=== PATIENT | female | born 1945 | race Caucasian/White ===

== ENCOUNTER 2016-07-19 10:40 | Emergency (ER) | payer MEDICARE ==
[2016-07-19] MEDS ORDERED: SODIUM CHLORIDE 0.9% 1,000 ML IV STA (12:36)
[2016-07-19] MEDS ORDERED: MAGNESIUM CITRATE 296 ML BOTTLE PO ONE (12:36)
[2016-07-19 13:15] LABS: Basophils % (A) 1 %; CH 29.5; CHCM 34.8; Eosinophils # (A) 0.2 k/uL (0-0.7); Eosinophils % (A) 3 %; HCT 43.5 % (34.0-46.0); HDW 2.61; HGB 15.2 gm/dL (11.4-16.0); Luc % (Auto) 3; Lymphocytes # (A) 2.1 k/uL (1.0-4.8); Lymphocytes % (A) 35 %; MCH 29.7 pg (25.0-35.0); MCHC 34.9 g/dL (31.0-37.0); MCV 85.1 fL (80.0-100.0); Mean Platelet Volume 7.7; Monocytes # (A) 0.5 k/uL (0-1.0); Monocytes % (A) 8 %; Neutrophils % (A) 50 %; RBC 5.12 m/uL (3.80-5.40); RDW 12.9 % (11.5-15.5); WBC (Perox) 5.68
--- NOTE | 2016-07-19 13:18 | ED ---
General Adult HPI - General Chief complaint: Abdominal Pain Stated complaint: constipated Time Seen by Provider: 07/19/16 12:19 Source: patient, RN notes reviewed Mode of arrival: ambulatory Limitations: no limitations - History of Present Illness Initial comments: Patient 71-year-old female who presents emergency room today with chief complaint of symptoms of nausea and possible constipation. Patient states that she's not had a normal bowel movement last 3 weeks. She states she's been using some stool softeners and [id number] laxatives with some success. She states she's had loose stools but still feels like there is more that the stool is going around. Patient admits that she's been feeling more nauseated over the last 2-3 days. She denies any abdominal pain. Denies any other complaints or symptoms. Patient denies any recent fever, chills, shortness of breath, chest pain, back pain, vomiting, numbness or tingling, dysuria or hematuria, constipation or diarrhea, headaches or visual changes, or any other complaints. - Related Data Previous Rx's Medication Instructions Recorded Ondansetron Odt [Zofran ODT] 4 mg PO Q8HR PRN #20 tab 07/19/16 Allergies Allergy/AdvReac Type Severity Reaction Status Date / Time No Known Allergies Allergy Verified 07/19/16 12:54 Review of Systems ROS Statement: Those systems with pertinent positive or pertinent negative responses have been documented in the HPI. ROS Other: All systems not noted in ROS Statement are negative. 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 History of Any Multi-Drug Resistant Organisms: None Reported Past Surgical History: Cholecystectomy Additional Past Surgical History / Comment(s): eye surgery, tubal ligation. Past Psychological History: No Psychological Hx Reported Smoking Status: Never smoker Past Alcohol Use History: None Reported Past Drug Use History: None Reported General Exam - General Exam Comments Initial Comments: General: The patient is awake and alert, in no distress, and does not appear acutely ill. Eye: Pupils are equal, round and reactive to light, extra-ocular movements are intact. No nystagmus. There is normal conjunctiva bilaterally. No signs of icterus. Ears, nose, mouth and throat: There are moist mucous membranes and no oral lesions. Neck: The neck is supple, there is no tenderness or JVD. Cardiovascular: There is a regular rate and rhythm. No murmur, rub or gallop is appreciated. Respiratory: Lungs are clear to auscultation, respirations are non-labored, breath sounds are equal. No wheezes, stridor, rales, or rhonchi. Gastrointestinal: Soft, non-distended, non-tender abdomen without masses or organomegaly noted. There is no rebound or guarding present. No CVA tenderness. Bowel sounds are unremarkable. Musculoskeletal: Normal ROM, no tenderness. Strength 5/5. Sensation intact. Pulses equal bilaterally 2+. Neurological: A&O x 3. CN II-XII intact, There are no obvious motor or sensory deficits. Coordination appears grossly intact. Speech is normal. Skin: Skin is warm and dry and no rashes or lesions are noted. Psychiatric: Cooperative, appropriate mood & affect, normal judgment. Limitations: no limitations Course Vital Signs 07/19/16 11:11 Temperature 97.2 F L Pulse Rate 70 Respiratory 20 Rate Blood Pressure 138/89 O2 Sat by Pulse 100 Oximetry Medical Decision Making - Medical Decision Making Patient reexamined at this time shows no signs of distress. Patient's labs been reviewed are unremarkable. X-ray nonspecific no sign of obstruction. Results were discussed with the patient. Abdomen soft nontender. Options were discussed with patient about in the emergency room. She declined. States will continue that she's been doing at home. Patient advised return if any symptoms increase or worsen. - Lab Data Result diagrams: 07/19/16 12:57 07/19/16 12:57 Lab Results 07/19/16 07/19/16 07/19/16 Range/Units 12:57 12:57 12:57 WBC 6.0 (3.8-10.6) k/uL RBC 5.12 (3.80-5.40) m/uL Hgb 15.2 (11.4-16.0) gm/dL Hct 43.5 (34.0-46.0) % MCV 85.1 (80.0-100.0) fL MCH 29.7 (25.0-35.0) pg MCHC 34.9 (31.0-37.0) g/dL RDW 12.9 (11.5-15.5) % Plt Count 264 (150-450) k/uL Neutrophils % 50 % Lymphocytes % 35 % Monocytes % 8 % Eosinophils % 3 % Basophils % 1 % Neutrophils # 3.0 (1.3-7.7) k/uL Lymphocytes # 2.1 (1.0-4.8) k/uL Monocytes # 0.5 (0-1.0) k/uL Eosinophils # 0.2 (0-0.7) k/uL Basophils # 0.0 (0-0.2) k/uL Sodium 144 (137-145) mmol/L Potassium 4.5 (3.5-5.1) mmol/L Chloride 106 (98-107) mmol/L Carbon Dioxide 24 (22-30) mmol/L Anion Gap 14 mmol/L BUN 15 (7-17) mg/dL Creatinine 0.71 (0.52-1.04) mg/dL Est GFR (MDRD) Af Amer >60 (>60 ml/min/1.73 sqM) Est GFR (MDRD) Non-Af >60 (>60 ml/min/1.73 sqM) Glucose 91 (74-99) mg/dL Calcium 9.8 (8.4-10.2) mg/dL Total Bilirubin 1.1 (0.2-1.3) mg/dL AST 40 H (14-36) U/L ALT 35 (9-52) U/L Alkaline Phosphatase 88 (38-126) U/L Total Protein 8.2 (6.3-8.2) g/dL Albumin 4.3 (3.5-5.0) g/dL Urine Color Yellow Urine Appearance Clear (Clear) Urine pH 8.0 (5.0-8.0) Ur Specific [place] 1.014 (1.001-1.035) Urine Protein Negative (Negative) Urine Glucose (UA) Negative (Negative) Urine Ketones Negative (Negative) Urine Blood Negative (Negative) Urine Nitrite Negative (Negative) Urine Bilirubin Negative (Negative) Urine Urobilinogen <2.0 (<2.0) mg/dL Ur Leukocyte Esterase Negative (Negative) Disposition Clinical Impression: Nausea Disposition: HOME SELF-CARE Condition: Good Instructions: Acute Nausea and Vomiting (ED) Additional Instructions: Please use medication as discussed. Please follow-up with family doctor in the next 2 days of symptoms have not improved. Please return to emergency room if the symptoms increase or worsen or for any other concerns. Prescriptions: Ondansetron Odt [Zofran ODT] 4 mg PO Q8HR PRN #20 tab PRN Reason: Nausea Time of Disposition: 14:11
[2016-07-19 13:21] LABS: Appearance,Urine Clear (Clear); Bilirubin,Urine Negative (Negative); Glucose,Urine (UA) Negative (Negative); Ketones,Urine Negative (Negative); Leukocyte Esterase,Urine Negative (Negative); Nitrite,Urine Negative (Negative); Protein,Urine Negative (Negative); Specific Gravity,Urine 1.014 (1.001-1.035); UA Billing (MACRO vs. MICRO) CHEM; Urobilinogen,Urine <2.0 mg/dL (<2.0)
[2016-07-19 13:25] LABS: ALT 35 U/L (9-52); AST 40 U/L (14-36); Alkaline Phosphatase 88 U/L (38-126); Anion Gap 14 mmol/L; Blood Urea Nitrogen 15 mg/dL (7-17); Calcium 9.8 mg/dL (8.4-10.2); Carbon Dioxide 24 mmol/L (22-30); Chloride 106 mmol/L (98-107); Glucose 91 mg/dL (74-99); Non-African American GFR(MDRD) >60 (>60 ml/min/1.73 sqM); Potassium 4.5 mmol/L (3.5-5.1); Sodium 144 mmol/L (137-145); Total Bilirubin 1.1 mg/dL (0.2-1.3); Total Protein 8.2 g/dL (6.3-8.2)
--- NOTE | 2016-07-19 13:56 | XR ---
EXAMINATION TYPE: XR KUB DATE OF EXAM: 07/19/2016 1:53 PM COMPARISON: NONE HISTORY: Constipation TECHNIQUE: One view abdominal series FINDINGS: The osseous structures are intact. The bowel gas pattern is nonspecific. Occasional air-fluid level is nonspecific. Lung bases are clear. Surgical clips right upper quadrant. Arthropathy of the hips n oted. Diffuse osteopenia and mild hypertrophic change of the spine. IMPRESSION: 1. Nonspecific abdomen.
[2016-07-19 14:20] VITALS: BP 151/76; PULSE 71; RESP 16; TEMP 97.8
== END 2016-07-19 14:20 | disposition home or self-care (01) ==
LOC: EC 10:40
DX: R11.0 Nausea (principal); R10.9 Unspecified abdominal pain; Z90.49 Acquired absence of other specified parts of digestive tract
CPT/HCPCS: 36415; 74000; 80053; 81003; 85025; 96360; 99284

== ENCOUNTER 2016-07-28 06:53 | Day surgery (SDC) | payer MEDICARE ==
[2016-07-23 15:02] VITALS: BMI 24.0
[~2016-07-28 06:53] MED LIST: LACTATED RINGERS 1,000 ML IV SCH
[2016-07-28 07:11] VITALS: TEMP 97.8
[2016-07-28] MEDS ORDERED: PROPOFOL 10 MG/ML 20 ML VIAL IV ONE (07:44)
[2016-07-28] MEDS ORDERED: LIDOCAINE 1% INJ 10MG/ML (20 ML MDV) ONE (07:44)
[2016-07-28 08:04] VITALS: RESP 16
--- NOTE | 2016-07-28 08:04 | P.PCN ---
Date of Procedure: 07/28/16 Procedure(s) Performed: BRIEF HISTORY: Patient is a 71-year-old pleasant white female, scheduled for an elective colonoscopy as a part of screening for colorectal neoplasia. Her last colonoscopy was 20 years ago. PROCEDURE PERFORMED: Colonoscopy. PREOPERATIVE DIAGNOSIS: Screening for colon cancer. IV sedation per Anesthesia. PROCEDURE: After informed consent was obtained, the patient, was brought into the endoscopy unit. IV sedation was administered by Anesthesia under continuous monitoring. Initial digital rectal examination was normal. Initially the Olympus CF-160 flexible video colonoscope was then inserted in the rectum, gradually advanced into the cecum without any difficulty. Careful examination was performed as the scope was gradually being withdrawn. Ileocecal valve and the appendiceal orifice were visualized and appeared normal. Prep was excellent. Mucosa of the cecum, ascending colon, transverse colon, descending colon, sigmoid colon, and rectum appeared normal. Scattered sigmoidal diverticulosis seen. Retroflexion was performed in the rectum and no lesions were seen. The patient tolerated the procedure well. IMPRESSION: Normal-appearing colon from rectum to cecum with no evidence of colorectal neoplasia. Scattered sigmoid diverticulosis. RECOMMENDATIONS: Findings of this examination were discussed with the patient as well as a family. She was advised to have a repeat screening colonoscopy in 10 years.
[2016-07-28 08:21] VITALS: BP 141/71; PULSE 76
== END 2016-07-28 08:50 | disposition home or self-care (01) ==
LOC: ORWHC2ENDO 06:53
PROVIDERS: ATTEND Internal Medicine Gastroenterology
DX: Z12.11 Encounter for screening for malignant neoplasm of colon (principal); K57.30 Diverticulosis of large intestine without perforation or abscess without bleeding; J45.909 Unspecified asthma, uncomplicated; E07.9 Disorder of thyroid, unspecified; K21.9 Gastro-esophageal reflux disease without esophagitis; Z79.899 Other long term (current) drug therapy; Z79.51 Long term (current) use of inhaled steroids
CPT/HCPCS: J2001; J2704; G0121

== ENCOUNTER → 2016-10-18 | Outpatient (CLI) | payer MEDICARE ==
--- NOTE | 2016-10-19 07:51 | MM ---
Reason for exam: screening (asymptomatic). Last mammogram was performed 1 year and 9 months ago. History: Patient is postmenopausal. Benign left US cyst aspiration of the left breast, December 23, 2008. Physical Findings: A clinical breast exam by your physician is recommended on an annual basis and results should be correlated with mammographic findings. MG 3D Screening Mammo W/Cad Bilateral CC and MLO view(s) were taken. Prior study comparison: January 16, 2015, bilateral MG screening mammo w CAD. October 30, 2013, bilateral MG screening mammo w CAD. There are scattered fibroglandular densities. Previous mammotome biopsy in the left breast. No significant changes when compared with prior studies. ASSESSMENT: Benign, BI-RAD 2 RECOMMENDATION: Routine screening mammogram of both breasts in 1 year.
== END | disposition home or self-care (01) ==
LOC: RADMAMWWP 07:39
PROVIDERS: ATTEND Family Medicine
DX: Z12.31 Encounter for screening mammogram for malignant neoplasm of breast (principal)
CPT/HCPCS: 77063; G0202

== ENCOUNTER → 2018-01-23 | Outpatient (CLI) | payer MEDICARE ==
--- NOTE | 2018-01-23 12:00 | MM ---
Reason for exam: screening (asymptomatic). Last mammogram was performed 1 year and 3 months ago. History: Patient is postmenopausal. Benign left US cyst aspiration of the left breast, December 23, 2008. Physical Findings: A clinical breast exam by your physician is recommended on an annual basis and results should be correlated with mammographic findings. MG 3D Screening Mammo W/Cad Bilateral CC and MLO view(s) were taken. Prior study comparison: October 18, 2016, bilateral MG 3d screening mammo w/cad. January 16, 2015, bilateral MG screening mammo w CAD. The breast tissue is heterogeneously dense. This may lower the sensitivity of mammography. There are benign appearing vascular calcifications bilaterally. Previous mammotome biopsy in the left breast. There is no discrete abnormality. ASSESSMENT: Benign, BI-RAD 2 RECOMMENDATION: Routine screening mammogram of both breasts in 1 year.
== END ==
LOC: RADMAMWWP 07:50
PROVIDERS: ATTEND Family Medicine
DX: Z12.31 Encounter for screening mammogram for malignant neoplasm of breast (principal)
CPT/HCPCS: 77063; 77067

== ENCOUNTER → 2019-01-24 | Outpatient (CLI) | payer MEDICARE ==
--- NOTE | 2019-01-26 13:21 | MM ---
Reason for exam: screening (asymptomatic). Last mammogram was performed 1 year ago. History: Patient is postmenopausal. Benign left US cyst aspiration of the left breast, December 23, 2008. Physical Findings: A clinical breast exam by your physician is recommended on an annual basis and results should be correlated with mammographic findings. MG 3D Screening Mammo W/Cad Bilateral CC and MLO view(s) were taken. Prior study comparison: January 23, 2018, bilateral MG 3d screening mammo w/cad. October 18, 2016, bilateral MG 3d screening mammo w/cad. The breast tissue is heterogeneously dense. This may lower the sensitivity of mammography. No significant changes when compared with prior studies. ASSESSMENT: Benign, BI-RAD 2 RECOMMENDATION: Routine screening mammogram of both breasts in 1 year.
== END | disposition home or self-care (01) ==
LOC: RADMAMWWP 11:10
PROVIDERS: ATTEND Family Medicine
DX: Z12.31 Encounter for screening mammogram for malignant neoplasm of breast (principal)
CPT/HCPCS: 77063; 77067

== ENCOUNTER → 2020-05-15 | Outpatient (CLI) | payer MEDICARE ==
--- NOTE | 2020-05-16 09:57 | MM ---
Reason for exam: screening (asymptomatic). Last mammogram was performed 1 year and 4 months ago. History: Patient is postmenopausal. Benign left US cyst aspiration of the left breast, December 23, 2008. Physical Findings: A clinical breast exam by your physician is recommended on an annual basis and results should be correlated with mammographic findings. MG 3D Screening Mammo W/Cad Bilateral CC and MLO view(s) were taken. Prior study comparison: January 24, 2019, bilateral MG 3d screening mammo w/cad. January 23, 2018, bilateral MG 3d screening mammo w/cad. The breast tissue is heterogeneously dense. This may lower the sensitivity of mammography. There are benign appearing vascular calcifications bilaterally. Previous mammotome biopsy in the left breast. There is no discrete abnormality. ASSESSMENT: Benign, BI-RAD 2 RECOMMENDATION: Routine screening mammogram of both breasts in 1 year.
== END | disposition home or self-care (01) ==
LOC: RADMAMWWP 09:24
PROVIDERS: ATTEND Family Medicine
DX: Z12.31 Encounter for screening mammogram for malignant neoplasm of breast (principal)
CPT/HCPCS: 77063; 77067

== ENCOUNTER → 2020-09-12 | Outpatient (CLI) | payer MEDICARE ==
[2020-09-12 19:47] LABS: Testosterone <7.00 ng/dL (7.00-45.62)
== END | disposition home or self-care (01) ==
LOC: LABWHC1 10:39
PROVIDERS: ATTEND Orthopaedic Surgery
DX: M17.0 Bilateral primary osteoarthritis of knee (principal); M70.51 Other bursitis of knee, right knee; M19.072 Primary osteoarthritis, left ankle and foot
CPT/HCPCS: 36415; 82040; 82306; 82672; 83970; 84134; 84403

== ENCOUNTER 2021-02-21 20:40 | Emergency (ER) | payer MEDICARE ==
[2021-02-21 20:48] VITALS: BP 164/74; TEMP 97.9
[2021-02-21 22:26] LABS: HCT 40.2 % (34.0-46.0); HGB 13.9 gm/dL (11.4-16.0); MCH 30.3 pg (25.0-35.0); MCHC 34.5 g/dL (31.0-37.0); MCV 87.8 fL (80.0-100.0); RBC 4.58 m/uL (3.80-5.40); WBC 6.7 k/uL (3.8-10.6)
[2021-02-21 22:27] LABS: Basophils % (A) 0 %; Eosinophils # (A) 0.2 k/uL (0-0.7); Eosinophils % (A) 2 %; Lymphocytes # (A) 2.4 k/uL (1.0-4.8); Lymphocytes % (A) 36 %; Mean Platelet Volume 8.3; Monocytes # (A) 0.5 k/uL (0-1.0); Monocytes % (A) 7 %; Neutrophils # (A) 3.4 k/uL (1.3-7.7); Neutrophils % (A) 51 %; Platelet Count 254 k/uL (150-450); RDW 13.4 % (11.5-15.5)
[2021-02-21 22:40] LABS: Appearance,Urine Clear (Clear); Bilirubin,Urine Negative (Negative); Blood,Urine Negative (Negative); Color,Urine Yellow; Glucose,Urine (UA) Negative (Negative); Ketones,Urine Negative (Negative); Leukocyte Esterase,Urine Moderate (Negative); Mucus,Urine Rare /hpf; Nitrite,Urine Negative (Negative); PH, Urine 7.5 (5.0-8.0); Protein,Urine Negative (Negative); RBC,Urine 2 /hpf (0-5); Specific Gravity,Urine 1.021 (1.001-1.035); Squamous Epithelial Cell,Urine 1 /hpf (0-4); Urobilinogen,Urine <2.0 mg/dL (<2.0); WBC,Urine 48 /hpf (0-5)
[2021-02-21 22:54] LABS: ALT 35 U/L (4-34); AST 48 U/L (14-36); African American GFR (CKD) >90 (>60 ml/min/1.73 sqM); Alkaline Phosphatase 81 U/L (38-126); Anion Gap 5 mmol/L; Blood Urea Nitrogen 18 mg/dL (7-17); Calcium 9.3 mg/dL (8.4-10.2); Carbon Dioxide 27 mmol/L (22-30); Chloride 108 mmol/L (98-107); Glucose 95 mg/dL (74-99); Lipase 208 U/L (23-300); Non-African American GFR(CKD) 88 (>60 ml/min/1.73 sqM); Sodium 140 mmol/L (137-145); Total Bilirubin 0.8 mg/dL (0.2-1.3); Total Protein 7.1 g/dL (6.3-8.2)
[2021-02-21 22:57] LABS: Potassium 4.9 mmol/L (3.5-5.1)
--- NOTE | 2021-02-21 23:26 | CT ---
EXAMINATION TYPE: CT abdomen pelvis w con DATE OF EXAM: 02/21/2021 COMPARISON: 12/03/2012 HISTORY: Abd Pain CT DLP: 656.80 mGycm Automated exposure control for dose reduction was used. CONTRAST: Performed with IV Contrast, patient injected with 100 mL of Isovue 300. Lung bases are clear of consolidation. Heart size is normal. There is no pericardial effusion. Liver spleen stomach pancreas appear intact. Bile ducts are nondilated. There are clips from cholecys tectomy. There is no adrenal mass. Kidneys show satisfactory contrast opacification. There is no hydronephrosi s. Bladder distends smoothly. There is no inguinal hernia. Uterus is anteverted. There is no evidence of a pelvic mass. There is no free fluid in the pelvis. There is a short small appendix which is posterior. There are multiple sigmoid diverticula. There is no sign of diverticulitis. There is some mild small bowel mesenteric edema in the mid abdomen. There is no ascites or free air. There is no bowel obstruc tion. Delayed images show normal renal excretion. The lumbar vertebra have normal alignment. There is vacuum disc at L4-5 and L5-S1. There is no compre ssion fracture. Bony pelvis is intact. The hip joints are intact. There is no hip dysplasia. IMPRESSION: Normal appendix. There is sigmoid diverticulosis without diverticulitis. There is some mild small bow el mesenteric edema in the mid abdomen which appears new compared to old exam. Clinical significance is not clear. There are small hypodense foci in the liver on previous exam that are mostly cleared on today's exam.
--- NOTE | 2021-02-22 00:03 | ED ---
Abdominal Pain HPI - General Chief Complaint: Abdominal Pain Stated Complaint: Abd Pain Source: patient Mode of arrival: ambulatory Limitations: no limitations - History of Present Illness Initial Comments: 75-year-old female with past medical history of asthma, thyroid disorder presents to the emergency department with reported weight loss and left lateral chest wall pain. Patient is currently in the middle of moving. Has been lifting a lot of heavy boxes. She has reproducible left-sided chest wall pain with palpation and she has had associated nausea, decreased appetite and has lost approximately 20 pounds in the past 8 months. Have testosterone replacement performed by her [employer] for which she did state that she would have some associated weight loss over the daughter feels as if the patient has had a significant amount of weight loss. The patient denies any abdominal pain. No changes in her bowel or bladder habits. Denies any shortness of breath. No fevers, chills or cough. No previous history of cardiac disease. No ripping or tearing sensation to her back. No other alleviating, precipitating or modifying factors - Related Data Home Medications Medication Instructions Recorded Confirmed Fluticasone/Salmeterol [Advair 1 puff INHALATION RT-BID 07/19/16 02/21/21 250-50 Diskus] Levothyroxine Sodium [Synthroid] 88 mcg PO DAILY 07/19/16 02/21/21 Montelukast [Singulair] 10 mg PO DAILY 07/19/16 02/21/21 Omeprazole 20 mg PO DAILY 07/19/16 02/21/21 Atorvastatin [Lipitor] 40 mg PO SA 02/21/21 02/21/21 Meloxicam [Mobic] 7.5 mg PO BID 02/21/21 02/21/21 Progesterone, Micronized 100 mg PO HS 02/21/21 02/21/21 [Progesterone] Allergies Allergy/AdvReac Type Severity Reaction Status Date / Time No Known Allergies Allergy Verified 02/21/21 22:27 Review of Systems ROS Statement: Those systems with pertinent positive or pertinent negative responses have been documented in the HPI. ROS Other: All systems not noted in ROS Statement are negative. 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 History of Any Multi-Drug Resistant Organisms: None Reported Past Surgical History: Cholecystectomy, Tubal Ligation Additional Past Surgical History / Comment(s): eyelid surgery. Past Anesthesia/Blood Transfusion Reactions: No Reported Reaction Past Psychological History: No Psychological Hx Reported Smoking Status: Never smoker Past Alcohol Use History: None Reported Past Drug Use History: None Reported - Past Family History Mother Family Medical History: No Reported History General Exam Limitations: no limitations Course Vital Signs 02/21/21 02/22/21 20:45 00:10 Temperature 97.9 F Pulse Rate 73 74 Respiratory 18 16 Rate Blood Pressure 164/74 O2 Sat by Pulse 98 98 Oximetry Medical Decision Making - Medical Decision Making Upon arrival the patient was placed into room 27. A thorough history and physical exam was performed. IV is established laboratory studies were conducted. CT performed the patient's abdomen and pelvis demonstrates mild mesenteric edema without acute process. Patient's symptoms do appear musculoskeletal in nature. Patient will be discharged home and needs to follow- up with Dr. Fonseca for further evaluation and possible EGD. Return to the emergency room for any worsening symptoms. Patient agreed to this was discharged in stable condition - Lab Data Result diagrams: 02/21/21 22:17 02/21/21 22:17 Lab Results 02/21/21 02/21/21 02/21/21 Range/Units 22:06 22:17 22:17 WBC 6.7 (3.8-10.6) k/uL RBC 4.58 (3.80-5.40) m/uL Hgb 13.9 (11.4-16.0) gm/dL Hct 40.2 (34.0-46.0) % MCV 87.8 (80.0-100.0) fL MCH 30.3 (25.0-35.0) pg MCHC 34.5 (31.0-37.0) g/dL RDW 13.4 (11.5-15.5) % Plt Count 254 (150-450) k/uL MPV 8.3 Neutrophils % 51 % Lymphocytes % 36 % Monocytes % 7 % Eosinophils % 2 % Basophils % 0 % Neutrophils # 3.4 (1.3-7.7) k/uL Lymphocytes # 2.4 (1.0-4.8) k/uL Monocytes # 0.5 (0-1.0) k/uL Eosinophils # 0.2 (0-0.7) k/uL Basophils # 0.0 (0-0.2) k/uL Sodium 140 (137-145) mmol/L Potassium 4.9 (3.5-5.1) mmol/L Chloride 108 H (98-107) mmol/L Carbon Dioxide 27 (22-30) mmol/L Anion Gap 5 mmol/L BUN 18 H (7-17) mg/dL Creatinine 0.63 (0.52-1.04) mg/dL Est GFR (CKD-EPI)AfAm >90 (>60 ml/min/1.73 sqM) Est GFR (CKD-EPI)NonAf 88 (>60 ml/min/1.73 sqM) Glucose 95 (74-99) mg/dL Plasma Lactic Acid Jorge (0.7-2.0) mmol/L Calcium 9.3 (8.4-10.2) mg/dL Total Bilirubin 0.8 (0.2-1.3) mg/dL AST 48 H (14-36) U/L ALT 35 H (4-34) U/L Alkaline Phosphatase 81 (38-126) U/L Total Protein 7.1 (6.3-8.2) g/dL Albumin 4.0 (3.5-5.0) g/dL Lipase 208 (23-300) U/L Urine Color Yellow Urine Appearance Clear (Clear) Urine pH 7.5 (5.0-8.0) Ur Specific [place] 1.021 (1.001-1.035) Urine Protein Negative (Negative) Urine Glucose (UA) Negative (Negative) Urine Ketones Negative (Negative) Urine Blood Negative (Negative) Urine Nitrite Negative (Negative) Urine Bilirubin Negative (Negative) Urine Urobilinogen <2.0 (<2.0) mg/dL Ur Leukocyte Esterase Moderate H (Negative) Urine RBC 2 (0-5) /hpf Urine WBC 48 H (0-5) /hpf Ur Squamous Epith Cells 1 (0-4) /hpf Urine Mucus Rare H (None) /hpf 02/21/21 Range/Units 22:17 WBC (3.8-10.6) k/uL RBC (3.80-5.40) m/uL Hgb (11.4-16.0) gm/dL Hct (34.0-46.0) % MCV (80.0-100.0) fL MCH (25.0-35.0) pg MCHC (31.0-37.0) g/dL RDW (11.5-15.5) % Plt Count (150-450) k/uL MPV Neutrophils % % Lymphocytes % % Monocytes % % Eosinophils % % Basophils % % Neutrophils # (1.3-7.7) k/uL Lymphocytes # (1.0-4.8) k/uL Monocytes # (0-1.0) k/uL Eosinophils # (0-0.7) k/uL Basophils # (0-0.2) k/uL Sodium (137-145) mmol/L Potassium (3.5-5.1) mmol/L Chloride (98-107) mmol/L Carbon Dioxide (22-30) mmol/L Anion Gap mmol/L BUN (7-17) mg/dL Creatinine (0.52-1.04) mg/dL Est GFR (CKD-EPI)AfAm (>60 ml/min/1.73 sqM) Est GFR (CKD-EPI)NonAf (>60 ml/min/1.73 sqM) Glucose (74-99) mg/dL Plasma Lactic Acid Jorge 0.8 (0.7-2.0) mmol/L Calcium (8.4-10.2) mg/dL Total Bilirubin (0.2-1.3) mg/dL AST (14-36) U/L ALT (4-34) U/L Alkaline Phosphatase (38-126) U/L Total Protein (6.3-8.2) g/dL Albumin (3.5-5.0) g/dL Lipase (23-300) U/L Urine Color Urine Appearance (Clear) Urine pH (5.0-8.0) Ur Specific [place] (1.001-1.035) Urine Protein (Negative) Urine Glucose (UA) (Negative) Urine Ketones (Negative) Urine Blood (Negative) Urine Nitrite (Negative) Urine Bilirubin (Negative) Urine Urobilinogen (<2.0) mg/dL Ur Leukocyte Esterase (Negative) Urine RBC (0-5) /hpf Urine WBC (0-5) /hpf Ur Squamous Epith Cells (0-4) /hpf Urine Mucus (None) /hpf Disposition Clinical Impression: Left-sided chest wall pain Disposition: HOME SELF-CARE Condition: Stable Instructions (If sedation given, give patient instructions): Chest Wall Pain (ED) Additional Instructions: Please follow-up with the GI doctor for possible EGD. Please see her doctor within 2-4 days. Return to the emergency room for any worsening symptoms Is patient prescribed a controlled substance at d/c from ED?: No Referrals: Ania Carroll DO [Primary Care Provider] - 1-2 days Araceli Fonseca MD [STAFF PHYSICIAN] - 1-2 days Time of Disposition: 00:03
[2021-02-22 00:12] VITALS: PULSE 74; RESP 16
== END 2021-02-22 00:11 | disposition home or self-care (01) ==
LOC: EC 20:40
DX: R07.89 Other chest pain (principal); J45.909 Unspecified asthma, uncomplicated; K21.9 Gastro-esophageal reflux disease without esophagitis; E03.9 Hypothyroidism, unspecified; Z79.890 Hormone replacement therapy; Z79.1 Long term (current) use of non-steroidal anti-inflammatories (NSAID); Z79.51 Long term (current) use of inhaled steroids; Z79.899 Other long term (current) drug therapy
CPT/HCPCS: 36415; 80053; 83605; 83690; 85025; 81001; 87086; 74177; 99285; Q9967

== ENCOUNTER → 2021-03-20 | Outpatient (CLI) | payer MEDICARE ==
[2021-03-20 08:24] LABS: African American GFR (CKD) >90 (>60 ml/min/1.73 sqM); Blood Urea Nitrogen 16 mg/dL (7-17); Non-African American GFR(CKD) 87 (>60 ml/min/1.73 sqM)
--- NOTE | 2021-03-20 09:24 | CT ---
EXAMINATION TYPE: CT chest w con DATE OF EXAM: 03/20/2021 COMPARISON: CT abdomen and pelvis February 21, 2021 HISTORY: SOB, Abnormal imaging, palpable lump left upper abdomen lower chest region per patient. CT DLP: 170.4 mGycm. Automated Exposure Control for Dose Reduction was Utilized. TECHNIQUE: CT scan of the thorax is performed following with IV Contrast, patient injected with 100 mL of Isovue 300. FINDINGS: LUNGS: Mild biapical pleural/parenchymal scarring. Mild bibasilar scarring and/or atelectasis. No ple ural effusion or pneumothorax seen bilaterally. No suspicious nodules or masses. MEDIASTINUM: There are some prominent borderline enlarged right hilar lymph nodes normal image 42. No greater than 1 cm mediastinal lymph nodes. No cardiomegaly or pericardial effusion is seen. OTHER: Cholecystectomy clips redemonstrated. No obvious concerning solid or cystic mass or fluid ruben ection in the left sided chest wall lower thoracic level extending into the upper abdomen. Exophytic 1.4 cm thin-walled cyst posterior lateral left kidney midpole level is redemonstrated. IMPRESSION: Mild chronic changes without acute pulmonary process.
== END ==
LOC: RADCTMAIN 07:20
PROVIDERS: ATTEND Internal Medicine Hematology & Oncology
DX: J98.4 Other disorders of lung (principal)
CPT/HCPCS: 82565; 84520; 71260; 36415; Q9967

== ENCOUNTER → 2021-08-10 | Outpatient (CLI) | payer MEDICARE ==
--- NOTE | 2021-08-11 11:46 | MM ---
Reason for exam: screening (asymptomatic). Last mammogram was performed 1 year and 3 months ago. History: Patient is postmenopausal. Benign left US cyst aspiration of the left breast, December 23, 2008. Physical Findings: A clinical breast exam by your physician is recommended on an annual basis and results should be correlated with mammographic findings. MG 3D Screening Mammo W/Cad Bilateral CC and MLO view(s) were taken. Prior study comparison: May 15, 2020, bilateral MG 3d screening mammo w/cad. January 24, 2019, bilateral MG 3d screening mammo w/cad. The breast tissue is heterogeneously dense. This may lower the sensitivity of mammography. Stable benign calcifications. There is no discrete abnormality. No significant changes when compared with prior studies. ASSESSMENT: Benign, BI-RAD 2 RECOMMENDATION: Routine screening mammogram of both breasts in 1 year.
== END | disposition home or self-care (01) ==
LOC: RADMAMWWP 08:18
PROVIDERS: ATTEND Family Medicine
DX: Z12.31 Encounter for screening mammogram for malignant neoplasm of breast (principal); Z78.0 Asymptomatic menopausal state
CPT/HCPCS: 77063; 77067

== ENCOUNTER 2021-11-14 12:10 | Emergency (ER) | payer MEDICARE ==
[2021-11-14 12:16] VITALS: BP 139/69; PULSE 78; TEMP 98
[2021-11-14] MEDS ORDERED: METOCLOPRAMIDE 5 MG/ML 2 ML VIAL IVP STA (12:26)
[2021-11-14] MEDS ORDERED: diazePAM 5 MG/ML 1 ML VIAL IVP STA (12:26)
[2021-11-14] MEDS ORDERED: GLUCAGON 1 MG/ML VIAL IVP STA (12:26)
[2021-11-14] MEDS ORDERED: NITROGLYCERIN SL TABS 0.4 MG TAB SUBLINGUAL STA (12:27)
[2021-11-14 12:34] VITALS: RESP 18
--- NOTE | 2021-11-14 12:42 | ED ---
General Adult HPI - General Chief complaint: ENT Stated complaint: Apple stuck in throat,SOB Time Seen by Provider: 11/14/21 12:17 Source: patient Mode of arrival: ambulatory Limitations: no limitations - History of Present Illness Initial comments: Patient is a 76-year-old female presenting with chief complaint of "there is an apple stuck in my throat". Patient states that this happened this afternoon. She tried to drink water, however she spit it right back up. Her son attempted to do the Heimlich on her which was unsuccessful. She attempted to gag herself but was unable to dislodge the piece of apple. Patient is complaining of pain in the throat, she denies shortness of breath or wheezing. Denies fever, chills, nausea, vomiting, chest pain, palpitations, weakness. - Related Data Home Medications Medication Instructions Recorded Confirmed Fluticasone Propion/Salmeterol 1 puff INHALATION RT-BID 07/19/16 02/21/21 [Advair 250-50 Diskus] Levothyroxine Sodium [Synthroid] 88 mcg PO DAILY 07/19/16 02/21/21 Montelukast [Singulair] 10 mg PO DAILY 07/19/16 02/21/21 Omeprazole 20 mg PO DAILY 07/19/16 02/21/21 Atorvastatin [Lipitor] 40 mg PO SA 02/21/21 02/21/21 Meloxicam [Mobic] 7.5 mg PO BID 02/21/21 02/21/21 Progesterone, Micronized 100 mg PO HS 02/21/21 02/21/21 [Progesterone] Allergies Allergy/AdvReac Type Severity Reaction Status Date / Time No Known Allergies Allergy Verified 11/14/21 12:16 Review of Systems ROS Statement: Those systems with pertinent positive or pertinent negative responses have been documented in the HPI. ROS Other: All systems not noted in ROS Statement are negative. 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 History of Any Multi-Drug Resistant Organisms: None Reported Past Surgical History: Cholecystectomy, Tubal Ligation Additional Past Surgical History / Comment(s): eyelid surgery. Past Anesthesia/Blood Transfusion Reactions: No Reported Reaction Past Psychological History: No Psychological Hx Reported Smoking Status: Never smoker Past Alcohol Use History: None Reported Past Drug Use History: None Reported - Past Family History Mother Family Medical History: No Reported History General Exam Limitations: no limitations General appearance: alert, in no apparent distress Head exam: Present: atraumatic, normocephalic, normal inspection Eye exam: Present: normal appearance, EOMI. Absent: scleral icterus, periorbital swelling ENT exam: Present: normal oropharynx, mucous membranes moist Neck exam: Present: normal inspection Respiratory exam: Present: normal lung sounds bilaterally. Absent: respiratory distress, wheezes, rales, rhonchi, stridor Cardiovascular Exam: Present: regular rate, normal rhythm, normal heart sounds. Absent: systolic murmur, diastolic murmur, rubs, gallop, clicks Neurological exam: Present: alert, oriented X3, CN II-XII intact Psychiatric exam: Present: normal affect, normal mood Skin exam: Present: warm, dry, intact, normal color. Absent: rash Course Vital Signs 11/14/21 12:12 Temperature 98 F Pulse Rate 78 Respiratory 18 Rate Blood Pressure 139/69 O2 Sat by Pulse 99 Oximetry Medical Decision Making - Medical Decision Making Patient is a 76-year-old female presenting with chief complaint of "there is an apple stuck in my throat". Patient was eating an apple when a small piece became lodged in her throat causing significant discomfort. She attempted to dislodge it by gagging herself and having someone perform the Heimlich, this was unsuccessful. She is unable to drink water, she states it comes right back up when she tries to swallow. She is having no shortness of breath or breathing- related complaints. On exam visible portion of posterior pharynx is normal. Lungs are clear to auscultation. Patient was given Reglan, Valium, glucagon, sublingual nitro, and was instructed to take small sips of carbonated beverage. On reassessment after approximately 15 minutes, patient states that she felt the apple dislodge and is now not having any discomfort. Still is having no breathing complaints. She appears stable for discharge with outpatient follow- up at this time. Follow-up with PCP this week. Report back to ER with any new or worsening symptoms. Discussed return parameters answered all questions. Patient conveyed verbal understanding and agreed to the plan. I discussed this case with my attending Dr. Mendez. Disposition Clinical Impression: Esophageal foreign body Disposition: HOME SELF-CARE Condition: Good Instructions (If sedation given, give patient instructions): Esophageal Foreign Body (ED) Additional Instructions: Follow-up with PCP this week. Report back to ER with any new or worsening symptoms. Is patient prescribed a controlled substance at d/c from ED?: No Referrals: Oniel Carroll MD [Primary Care Provider] - 1-2 days Time of Disposition: 13:16
== END 2021-11-14 14:09 | disposition home or self-care (01) ==
LOC: EC 12:10
DX: T18.128A Food in esophagus causing other injury, initial encounter (principal); J45.909 Unspecified asthma, uncomplicated; E07.9 Disorder of thyroid, unspecified; K21.9 Gastro-esophageal reflux disease without esophagitis; Z79.83 Long term (current) use of bisphosphonates; Z79.899 Other long term (current) drug therapy
CPT/HCPCS: 99284; 96374; 96375; J1610; J2765; J3360

== ENCOUNTER → 2022-08-11 | Outpatient (CLI) | payer MEDICARE ==
--- NOTE | 2022-08-12 16:44 | MM ---
Reason for Exam: Screening (asymptomatic). Last screening mammogram was performed 12 month(s) ago. Patient History: Menarche at age 16. First Full-Term at age 22. Postmenopausal. 12/23/2008, Benign Cyst Aspiration on the left side. Risk Values: Alissa 5 year model risk: 1.4%. NCI Lifetime model risk: 2.7%. Prior Study Comparison: 01/24/2019 Bilateral Screening Mammogram, [facility]. 05/15/2020 Bilateral Screening Mammogram, [facility]. 08/10/2021 Bilateral Screening Mammogram, [facility]. Tissue Density: The breast tissue is heterogeneously dense. This may lower the sensitivity of mammography. Findings: Analyzed By CAD. Pattern appears symmetrical and stable. Benign vascular calcifications present bilaterally. No significant interval change is evident. No suspicious groups of microcalcifications, spiculated or lobular masses, architectural distortion or other secondary signs of malignancy are mammographically apparent. Overall Assessment: Benign, BI-RAD 2 Management: Screening Mammogram of both breasts in 1 year. A negative mammogram report should not preclude additional follow up of suspicious palpable abnormalities. Patient should continue monthly self breast exam. A clinical breast exam by your physician is recommended on an annual basis and results should be correlated with mammographic findings. Electronically signed and approved by: Jem Garcia D.O. Radiologis
== END | disposition home or self-care (01) ==
LOC: RADMAMWWP 07:09
PROVIDERS: ATTEND Obstetrics & Gynecology
DX: Z12.31 Encounter for screening mammogram for malignant neoplasm of breast (principal); Z78.0 Asymptomatic menopausal state; Z98.890 Other specified postprocedural states
CPT/HCPCS: 77063; 77067

== ENCOUNTER → 2022-10-20 | Outpatient (CLI) | payer MEDICARE ==
--- NOTE | 2022-10-20 14:54 | US ---
EXAMINATION TYPE: US venous doppler duplex LE RT DATE OF EXAM: 10/20/2022 12:50 PM COMPARISON: NONE CLINICAL INDICATION: Female, 77 years old with history of R22.41 LOCALIZED SWELLING, MASS AND LUMP, R IGHT LOWER ,I80.9; Right leg swelling SIDE PERFORMED: Right TECHNIQUE: The lower extremity deep venous system is examined utilizing real time linear array sonog steven with graded compression, doppler sonography and color-flow sonography. VESSELS IMAGED: Common Femoral Vein Deep Femoral Vein Greater Saphenous Vein * Femoral Vein Popliteal Vein Small Saphenous Vein * Proximal Calf Veins (* superficial vessels) Right Leg: Appears negative for DVT IMPRESSION: 1. Right lower extremity ultrasound negative for deep venous thrombosis.
== END | disposition home or self-care (01) ==
LOC: RADUSWWP 12:35
PROVIDERS: ATTEND Orthopaedic Surgery Orthopaedic Surgery of the Spine
DX: I80.9 Phlebitis and thrombophlebitis of unspecified site (principal); M19.071 Primary osteoarthritis, right ankle and foot; M51.36 Other intervertebral disc degeneration, lumbar region; M47.816 Spondylosis without myelopathy or radiculopathy, lumbar region; S93.491A Sprain of other ligament of right ankle, initial encounter; S32.010A Wedge compression fracture of first lumbar vertebra, initial encounter for closed fracture; M79.81 Nontraumatic hematoma of soft tissue; M62.830 Muscle spasm of back; M54.59 Other low back pain; R22.41 Localized swelling, mass and lump, right lower limb; X58.XXXA Exposure to other specified factors, initial encounter

== ENCOUNTER → 2022-12-27 | Outpatient (CLI) | payer MEDICARE ==
--- NOTE | 2022-12-27 09:30 | XR ---
EXAMINATION TYPE: XR chest 2V DATE OF EXAM: 12/27/2022 COMPARISON: 12/02/2012 HISTORY: Shortness of breath TECHNIQUE: Frontal and lateral views of the chest are obtained. FINDINGS: Scattered senescent parenchymal changes noted. Hyperinflation compatible with COPD. No evidence for infiltrate. No evidence for atelectasis. Heart size is stable. Mediastinal structures are stable and grossly unremarkable. No evidence for hilar prominence. Degenerative changes dorsal spine. IMPRESSION: 1. No evidence for acute pulmonary disease.
[2022-12-27 10:39] LABS: Partial Thromboplastin Time 25.2 sec (22.0-30.0); Prothrombin Time 10.2 sec (9.0-12.0)
[2022-12-27 15:43] LABS: Basophils # (A) 0.02 X 10*3/uL (0.00-0.10); Basophils % (A) 0.3 %; Eosinophils # (A) 0.08 X 10*3/uL (0.04-0.35); Eosinophils % (A) 1.3 %; HCT 42.5 % (37.2-46.3); HGB 13.8 d/dL (12.0-15.0); Lymphocytes % (A) 29.4 %; MCH 29.2 pg (27.0-32.0); MCHC 32.5 d/dL (32.0-37.0); MCV 89.9 FL (80.0-97.0); Mean Platelet Volume 10.7 FL (9.5-12.2); Monocytes # (A) 0.72 X 10*3/uL (0.20-1.00); Monocytes % (A) 11.7 %; NRBC Per 100 WBC 0 X 10*3/uL (0.00-0.01); Neutrophils # (A) 3.49 X 10*3/uL (1.80-7.70); Platelet Count 318 X 10*3/uL (140-440); RBC 4.73 X 10*6/uL (4.10-5.20); RDW 12.8 % (11.5-14.5); WBC 6.13 X 10*3/uL (4.50-10.00)
[2022-12-27 15:49] LABS: BUN/Creat Ratio 13.38 Ratio (12.00-20.00); Blood Urea Nitrogen 10.7 mg/dL (9.0-27.0); Calcium 9.4 mg/dL (8.7-10.3); Carbon Dioxide 26.9 mmol/L (21.6-31.8); Chloride 109 mmol/L (96-109); Glucose 92 mg/dL (70-110); Potassium 3.5 mmol/L (3.5-5.5); Sodium 144 mmol/L (135-145)
[2022-12-27 16:34] LABS: Appearance,Urine Clear (Clear); Bilirubin,Urine Negative (Negative); Blood,Urine Negative (Negative); Color,Urine Yellow (Yellow); Ketones,Urine Negative (Negative); Nitrite,Urine Negative (Negative); Specific Gravity,Urine 1.019 (1.001-1.030); Urobilinogen,Urine 0.2 E.U./DL
[2022-12-27 16:40] LABS: Bacteria,Urine None Seen (None Seen)
== END | disposition home or self-care (01) ==
LOC: LABPAT 09:03
PROVIDERS: ATTEND Orthopaedic Surgery Orthopaedic Surgery of the Spine
DX: Z01.818 Encounter for other preprocedural examination (principal); S32.009A Unspecified fracture of unspecified lumbar vertebra, initial encounter for closed fracture; X58.XXXA Exposure to other specified factors, initial encounter
CPT/HCPCS: 71046; 80048; 81001; 85025; 85610; 85730; 93005

== ENCOUNTER 2023-01-05 10:14 | Day surgery (SDC) | payer MEDICARE ==
[~2023-01-05 10:14] MED LIST changes: +DEXAMETHASONE SOD PHOSPHATE 4 MG/ML 1 ML VIAL IV ONE; +HYDROmorphone 0.5 MG/0.5 ML SYRINGE IVP PRN; -LACTATED RINGERS 1,000 ML IV SCH; +LIDOCAINE 1% (10MG/ML) FOR IV START INTRADERMA PRN; +MIDAZOLAM 2 MG/2 ML VIAL IV PRN; +ONDANSETRON 4 MG/2 ML VIAL IVP ONE; +ceFAZolin 1,000 MG in SODIUM CHLORIDE 0.9% IRRIGATIO 1,000 ML IRRIGATION PRN
[2023-01-05] MEDS: LACTATED RINGERS 1,000 ML IV SCH (10:44)
[2023-01-05] MEDS ORDERED: SUCCINYLCHOLINE CHLORIDE 200 MG/10 ML VIAL IV ONE (11:30)
[2023-01-05] MEDS ORDERED: PROPOFOL 10 MG/ML 20 ML VIAL IV ONE (11:30)
[2023-01-05] MEDS ORDERED: MIDAZOLAM 2 MG/2 ML VIAL ONE (11:30)
[2023-01-05] MEDS ORDERED: fentaNYL (PF) 50 MCG/ML 2 ML AMP ONE (11:30)
[2023-01-05] MEDS ORDERED: LIDOCAINE 2% INJ 20 MG/ML (2 ML VIAL) ONE (11:30)
[2023-01-05] MEDS ORDERED: IOPAMIDOL M200 10 ML VIAL MISCELLANE ONE (11:34)
[2023-01-05] MEDS ORDERED: LIDOCAINE 0.5%-EPI 1:200,000 50 ML VIAL SQ ONE (11:34)
[2023-01-05] MEDS ORDERED: LACTATED RINGERS 1,000 ML IV ONE (12:05)
--- NOTE | 2023-01-05 12:36 | XR ---
Intraoperative/procedural fluoroscopic services were provided for L4 compression fracture vertebral a ugmentation. Total fluoroscopy time is 29.9 seconds with a total of 2 submitted images to PACS. Total DAP 11.209 Gycm2. Please see the operative note for further details.
[2023-01-05] MEDS ORDERED: HYDROmorphone 0.5 MG/0.5 ML SYRINGE IVP PRN (12:42)
[2023-01-05] MEDS ORDERED: HYDROcodone/APAP 5-325MG 1 EACH TAB PO PRN (12:42)
[2023-01-05] MEDS ORDERED: SENNOSIDES-DOCUSATE SODIUM 1 EACH TAB PO PRN (12:43)
[2023-01-05] MEDS ORDERED: ONDANSETRON 4 MG/2 ML VIAL IVP PRN (12:43)
[2023-01-05] MEDS ORDERED: KETOROLAC 15 MG/ML 1 ML VIAL IVP PRN (12:43)
[2023-01-05] MEDS ORDERED: traMADol 50 MG TAB PO PRN (12:43)
--- NOTE | 2023-01-05 12:49 | P.OP ---
Date of Procedure: 01/05/23 Preoperative Diagnosis: L4 compression fracture, subacute traumatic Low back pain, failed conservative treatment Postoperative Diagnosis: Same Anesthesia: GETA Pathology: other (L4 vertebral body biopsy sent to pathology) Condition: stable Disposition: PACU Description of Procedure: BRIEF OPERATIVE NOTE Preoperative Diagnosis: L4 compression fracture, subacute traumatic Low back pain, failed conservative treatment Postoperative Diagnosis: Same Procedure: Kyphoplasty of L4 Vertebral body biopsy of L4 Use of biplanar fluoroscopic guidance Surgeon: Dr. Pandya Director Supply Chain: Osbaldo Diane is present throughout the entire the case persistence during positioning, dissection, exposure, visualization, and all crucial elements of the case as well as closure. Anesthesia: General anesthesia Estimated blood loss: Less than 10 mL Specimen: L4 Vertebral body biopsy sent to pathology in formalin Complications: None apparent Components implanted: Bone cement approximately 7-1/2 mL Disposition: To recovery room in good stable condition. OPERATIVE INDICATIONS The patient has been having issues in their back ever since sustaining an injury. She initially was found have a fractured L1 was doing well with this but continued to have lower pain and further imaging showed evidence of edema and compression deformity at L4 vertebral body. Her pain correlated well with the L4 changes she had a subacute compression deformity and fractured due to her injury which was not healing despite aggressive conservative treatment and bracing. The patient has been through conservative treatment. They attempted conservative care with bracing however they're not having any benefit despite brace use. They continue to have significant pain and debility due to their fracture. We discussed various treatment options including surgery, and the patient wishes to proceed with surgery We discussed the risk, patient's al ternatives and benefits of surgery including but not limited to, risk of bleeding risk of infection, risk of need for further surgery, risk of decreased, loss of motion, loss of function, cement extravasation, nerve damage, paralysis, heart attack, blindness and . OPERATIVE SUMMARY After discussing all the risks, patient alternatives and benefits at length, the patient elected to proceed with surgical intervention, signed informed consent, and presented for their procedure. The patient was seen and examined in the preoperative holding area and the surgical site was marked. The patient was given antibiotics and brought to the operating room. The patient was sedated and intubated by anesthesia in standard fashion. The patient was positioned on to the operating room table in a prone position on the appropriate well-padded and well molded bilateral chest rolls. We were careful to pad any bony prominences and pressure points. We were careful to maintain the patient's cervical spine and good neutral alignment and position throughout. We used 2 C-arm machines to establish biplanar fluoroscopic guidance in AP and lateral positions. We were able to localize the fractures appropriately. The patient was prepped and draped in a normal standard fashion. An appropriate timeout and keystone protocol performed. We were able to proceed with the surgery. The local wound area was infiltrated with local anesthetic. An incision was made over the lateral aspect of the pedicle over the appropriate levels with a small 2 mm stab incision. Intraoperative fluoroscopy was taken wh ch showed a marker at the appropriate level of L4 on the left. With the appropriate level positively confirmed, I was able to position a sharp trocar over the lateral aspect of the pedicle. As able to advance the trocar into the pedicle and into the posterior aspect of vertebral body being careful to avoid penetration cephalad caudad or medially. The trocar was placed appropriately into the posterior aspect of vertebral body at the appropriate levels. This was confirmed with C-arm guidance. With the trocar intact I was then able to take a bone biopsy with a biopsy punch . The biopsy specimen was passed off to be sent to pathology in formalin. I was then able to place the kyphoplasty balloon within the vertebral body. The position was checked on C-arm. I was able to inflate the balloon under low pressure and visualization with C-arm. The balloon was well enclosed within the vertebral body. The cement was prepared. With the cement at appropriate working condition the balloons were deflated and removed. I was able to place bony cement with trocar with the cement delivery device under low pressure. It had good fill within the vertebral body. There is no evidence of any extravasation of the cement posteriorly toward the canal. There was some cement extending through a superior fracture line into the disc had L3 4 but otherwise The cement was well contained at the appropriate level of L4 without any worry toward the canal. The cement was allowed to cure appropriately. The trochars removed and final images were taken on C-arm. This showed the cement at the dhiraj ropriate levels of L4. We were able to proceed with closure. The wound was cleaned and dried and dressed with the appropriate dressing. The drapes were broken down. The patient was gently rolled back onto their hospital bed being careful to maintain their cervical spine and good neutral alignment and position. They were woken up by anesthesia, extubated, and brought to the recovery room in good stable condition. The patient will be admitted to the hospital for observation and for appropriate postoperative care, medical management and monitoring. If she is okay for discharge home today and needs appropriate criteria then she will be able to be discharged home. We will continue to follow them closely about the postoperative course.
[2023-01-05] MEDS ORDERED: HYDROmorphone 0.5 MG/0.5 ML SYRINGE IVP ONE ×2 (13:11→13:24)
[2023-01-05] MEDS: SODIUM CHLORIDE 0.9% 1,000 ML IV SCH ×2 (18:20→23:55)
[2023-01-05] MEDS: ACETAMINOPHEN TAB 325 MG TAB PO SCH ×2 (19:09→23:53)
[2023-01-05] MEDS ORDERED: diphenhydrAMINE 25 MG CAP PO PRN (19:49)
[2023-01-05] MEDS: SYMBICORT 80-4.5 MCG INHALER INHALATION SCH (20:52)
[2023-01-05] MEDS ORDERED: NON FORMULARY DRUG (Progesterone, Micronized [Progesterone] 100 MG Capsule) PO SCH (21:00)
[2023-01-06] MEDS: ACETAMINOPHEN TAB 325 MG TAB PO SCH ×2 (05:56→12:05)
[2023-01-06] MEDS ORDERED: LEVOTHYROXINE 88 MCG TAB PO SCH (06:30)
[2023-01-06] MEDS ORDERED: PANTOPRAZOLE 40 MG TABLET PO SCH (07:30)
[2023-01-06 08:28] VITALS: BP 113/71; PULSE 60; RESP 16; TEMP 97.6
[2023-01-06] MEDS: SYMBICORT 80-4.5 MCG INHALER INHALATION SCH (08:34)
[2023-01-06] MEDS ORDERED: ZINC SULFATE 220 MG CAP PO SCH (09:00)
[2023-01-06] MEDS ORDERED: CHOLECALCIFEROL 125 MCG (5000 IU) TABLET PO SCH (09:00)
[2023-01-06] MEDS ORDERED: ASCORBIC ACID 500 MG TAB PO SCH (09:00)
[2023-01-06] MEDS ORDERED: MONTELUKAST 10 MG TAB PO SCH (09:00)
[2023-01-06] MEDS ORDERED: ESCITALOPRAM 10 MG TAB PO SCH (09:00)
[2023-01-06] MEDS ORDERED: [UNRECOGNIZED DRUG - OTHER] PO SCH (09:00)
[2023-01-06] MEDS: LACTATED RINGERS 1,000 ML IV SCH (09:01)
--- NOTE | 2023-01-06 09:32 | P.CONS ---
History of Present Illness - Reason for Consult Consult date: 01/06/23 Medical management postoperative hypoxia, hypothyroidism Requesting physician: Socorro Pandya - Chief Complaint Lower back pain, L4 compression fracture failed conservative tx - History of Present Illness This is a pleasant 77 -year-old female with past medical history significant for low back pain, L4 compression fracture, subacute traumatic, failed conservative treatment, status post kyphoplasty of L4 with vertebral body biopsy of L4. Tolerated procedure well. Developed acute hypoxic respiratory failure postoperatively, attributed to atelectasis. Hypoxia resolved, currently maintaining O2 sats in the high 90s on room air. Denies chest pain, palpitations or shortness of breath.Compliant with incentive spirometer. Passing flatus. Pain currently controlled. VSS. Denies lightheadedness, dizziness or focal deficits. Review of Systems Constitutional: Denied any fatigue denied any fever. Cardio vascular: denied any chest pain, palpitations Gastrointestinal denied any nausea vomiting Pulmonary: Denied any shortness of breath cough Neurologic denied any new focal deficits ROS Statement: Those systems with pertinent positive or pertinent negative responses have been documented in the HPI. ROS Other: All systems not noted in ROS Statement are negative. 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 lac vieux plate to upper lid rt eye. generalized arthritis , bilateral lower leg swelling. hx of fall History of Any Multi-Drug Resistant Organisms: None Reported Past Surgical History: Cholecystectomy, Tubal Ligation Additional Past Surgical History / Comment(s): eyelid surgery. colonoscopies, vein stripping to left leg Past Anesthesia/Blood Transfusion Reactions: Postoperative Nausea & Vomiting (PONV) Additional Past Anesthesia/Blood Transfusion Reaction / Comm: daughter n/v Smoking Status: Never smoker - Past Family History Mother Family Medical History: Deep Vein Thrombosis (DVT) Additional Family Medical History / Comment(s): blood clot to brain Father Family Medical History: Cancer Additional Family Medical History / Comment(s): esophageal Medications and Allergies Home Medications Medication Instructions Recorded Confirmed Type Fluticasone Propion/Salmeterol 1 puff INHALATION RT-BID 07/19/16 01/05/23 History [Advair 250-50 Diskus] Levothyroxine Sodium [Synthroid] 88 mcg PO DAILY 07/19/16 01/05/23 History Montelukast [Singulair] 10 mg PO DAILY 07/19/16 01/05/23 History Omeprazole 20 mg PO DAILY 07/19/16 01/05/23 History Atorvastatin [Lipitor] 40 mg PO SA 02/21/21 01/05/23 History Progesterone, Micronized 100 mg PO HS 02/21/21 01/05/23 History [Progesterone] Ascorbic Acid [Vitamin C] 500 mg PO DAILY 12/31/22 01/05/23 History Cholecalciferol [Vitamin D3 (125 125 mcg PO DAILY 12/31/22 01/05/23 History Mcg = 5000 Iu)] Escitalopram Oxalate [Lexapro] 10 mg PO DAILY 12/31/22 01/05/23 History Unk Coq10 1 tab PO DAILY 12/31/22 01/05/23 History Zinc Glycinate [Zinc Chelate] 30 mg PO DAILY 12/31/22 01/05/23 History traMADol HCl [Ultram] 50 mg PO Q6HR PRN 3 Days #12 tab 01/05/23 Rx Allergies Allergy/AdvReac Type Severity Reaction Status Date / Time No Known Allergies Allergy Verified 01/05/23 10:44 Physical Exam Vitals: Vital Signs Temp Pulse Resp BP Pulse Ox 01/06/23 08:35 96 01/06/23 07:14 97.6 F 60 16 113/71 97 01/06/23 06:02 95 01/06/23 06:00 88 L 01/06/23 01:41 97.8 F 61 17 118/70 98 01/05/23 19:49 98 F 66 18 116/56 97 01/05/23 16:05 68 18 106/64 95 01/05/23 15:30 63 18 100/56 100 01/05/23 15:00 63 16 118/60 98 01/05/23 14:45 70 16 110/71 98 01/05/23 14:30 83 16 119/70 98 01/05/23 14:15 85 16 146/89 100 01/05/23 14:00 84 16 122/83 95 01/05/23 13:45 67 16 119/57 95 01/05/23 13:30 79 16 126/57 94 L 01/05/23 13:15 76 16 145/65 93 L 01/05/23 13:00 77 14 151/63 94 L 01/05/23 12:46 82 16 146/70 98 01/05/23 12:31 97 16 160/71 96 01/05/23 10:42 97.7 F 69 16 161/73 98 Intake and Output 01/05/23 01/06/23 01/06/23 22:59 06:59 14:59 Other: # Voids 1 PHYSICAL EXAM: VITAL SIGNS: As above GENERAL: Sitting up in bed, no acute distress HEENT: Normocephalic, Conjunctivae normal. eyes normal. NECK: Supple, No JVD. No thyroid enlargement. No LNs CARDIOVASCULAR: S1, S2 regular. No murmur. RESPIRATION: Unlabored, equal air entry, Bibasilar fine crackles with fine bibasilar basilar crackles.No rhonchi, no wheezing .No bronchial breathing. ABDOMEN: Soft, nondistended, nontender . No guarding. no masses palpable. No ascites, No hepatosplenomegaly.Bowel sounds heard. LEGS: No edema. no swelling PSYCHIATRY: Alert and oriented X3, mood and affect normal. NERVOUS SYSTEM: Cranial N 2-12 grossly normal. No focal deficits. Strength and sensation grossly intact.. Skin: Warm and dry,no rash Assessment and Plan Assessment: Low back pain, L4 compression fracture, subacute traumatic, failed conservative treatment, status post kyphoplasty of L4, vertebral body biopsy of L4 Acute chronic hypoxia, postoperatively, resolved, secondary to Atelectasis, expected outcome. Chronic asthma, stable Gastroesophageal reflux disease Hypothyroidism Osteoarthritis Hyperlipidemia PONV, history of Anxiety Plan: Continue on current medication regime ,monitoring and symptomatic treatment. Aggressive pulmonary toileting with incentive spirometer reinforced. Maintained Symbicort. Pain management, DVT prophylaxis as per primary. PT.Discharge planning in progress for today as per orthopedic-spines surgery. Follow-up with PCP in one week. Thank you for the consult. The impression and plan of care has been dictated as directed. : I performed a history and examination of this patient, discussed the same with the dictator. I agree with the dictator's note ,documented as a scribe. Any additional findings or plans will be noted.
--- NOTE | 2023-01-06 10:30 | P.DS ---
Providers Date of admission: 01/05/23 Attending physician: Socorro Pandya Consults: 01/05/23 14:21 Consult Physician Routine Consulting Provider: Denis Hernandez Consult Reason/Comments: medical management, hypoxia Do you want consulting provider notified?: Yes 01/05/23 15:14 Consult Physician Routine Consulting Provider: Natanael Marie Consult Reason/Comments: hypoxia, post op kyphoplasty Do you want consulting provider notified?: Yes Primary care physician: Ania Carroll [facility] Course: The patient presented on the day of admission as per their operative note. She had an L4 compression fracture which underwent kyphoplasty yesterday. In recovery she was having some desaturation on room air and was requiring nasal cannula. She is not having the changes in her back or lower extremities. She does not feel short of breath but with the desaturation we felt that the best keeper for observation. Overnight she is not having issues in his breathing well. She's been complaining room air with good saturation. Physical Exam The incision site is clean dry and intact. There is no erythema no drainage. There is no purulence no evidence of infection. Abdomen soft and nontender. Chest has good excursion with deep inspiration and expiration. The patient has active and passive range of motion intact at the upper and lower extremities. There is no acute change in neurologic status. She has sustained dorsal flexion plantar flexion and [facility] Hospital Course Postoperative day #1 status post kyphoplasty L4 for compression fracture Desaturation improved and stabilized The patient has been making good progress postoperatively. They have completed the prophylactic antibiotics without any signs or symptoms of infection. The patient has been able to advance their diet, and is tolerating diet adequately. The pain was initially controlled with IV medications and is now controlled appropriately with oral medications. The patient has been able to increase their mobilization. She is wearing currently on room air at this point and can be discharged without any supplemental oxygen. Medicine has been following her fall. The patient has progressed appropriately. I think they are in good stable condition for discharge today. They will be sent home with appropriate prescriptions. I answered their questions to the best of my ability in a language that they can understand and they are agreeable with the plan. They will follow up as directed. Patient Condition at Discharge: Good Plan - Discharge Summary Discharge Rx Participant: No New Discharge Prescriptions: New traMADol HCl [Ultram] 50 mg PO Q6HR PRN 3 Days #12 tab PRN Reason: Pain No Action Montelukast [Singulair] 10 mg PO DAILY Fluticasone Propion/Salmeterol [Advair 250-50 Diskus] 1 puff INHALATION RT- BID Omeprazole 20 mg PO DAILY Levothyroxine Sodium [Synthroid] 88 mcg PO DAILY Escitalopram Oxalate [Lexapro] 10 mg PO DAILY Cholecalciferol [Vitamin D3 (125 Mcg = 5000 Iu)] 125 mcg PO DAILY Atorvastatin [Lipitor] 40 mg PO SA Progesterone, Micronized [Progesterone] 100 mg PO HS Zinc Glycinate [Zinc Chelate] 30 mg PO DAILY Ascorbic Acid [Vitamin C] 500 mg PO DAILY Unk Coq10 1 tab PO DAILY Discharge Medication List Fluticasone Propion/Salmeterol [Advair 250-50 Diskus] 1 puff INHALATION RT-BID 07/19/16 [History] Levothyroxine Sodium [Synthroid] 88 mcg PO DAILY 07/19/16 [History] Montelukast [Singulair] 10 mg PO DAILY 07/19/16 [History] Omeprazole 20 mg PO DAILY 07/19/16 [History] Atorvastatin [Lipitor] 40 mg PO SA 02/21/21 [History] Progesterone, Micronized [Progesterone] 100 mg PO HS 02/21/21 [History] Ascorbic Acid [Vitamin C] 500 mg PO DAILY 12/31/22 [History] Cholecalciferol [Vitamin D3 (125 Mcg = 5000 Iu)] 125 mcg PO DAILY 12/31/22 [History] Escitalopram Oxalate [Lexapro] 10 mg PO DAILY 12/31/22 [History] Unk Coq10 1 tab PO DAILY 12/31/22 [History] Zinc Glycinate [Zinc Chelate] 30 mg PO DAILY 12/31/22 [History] traMADol HCl [Ultram] 50 mg PO Q6HR PRN 3 Days #12 tab 01/05/23 [Rx] Follow up Appointment(s)/Referral(s): Socorro Pandya DO [Doctor of Osteopathic Medicine] - 10 Days Patient Instructions/Handouts: *Surgery [facility] - (Anesthesia) Discharge Ins tructions Outpatient Surgery, Kyphoplasty (DC) Activity/Diet/Wound Care/Special Instructions: Keep site clean. May shower with waterproof Tegaderm intact. Do not soak in a tub. After 72 hours postoperatively, patient May remove dressing and then may shower with area uncovered. Leave glue intact and allow it to fray off on its own. May ambulate as tolerated. Avoid heavy or rigorous activity. No repetitive bending twisting or lifting. No overhead work. Discharge Disposition: HOME SELF-CARE
--- NOTE | 2023-01-06 11:28 | P.CNPUL ---
History of Present Illness Consult date: 01/06/23 Requesting physician: Socorro Pandya Reason for consult: asthma, hypoxemia Chief complaint: Hypoxemia after kyphoplasty History of present illness: Pulmonary consult dated 01/06/2023. 77-year-old female with a history of asthma, had a L4 kyphoplasty done yesterday, by Dr. Pandya. Apparently, according to the patient's daughter, who is a PA, here at this hospital, she developed post operative hypoxemia, with very low saturations, into the 60s, despite using 2 or 3 different pulse oximeters. For that reason, she was admitted to the hospital overnight, for observation. Today, she's doing well. She's on room air, and her saturations are 96%. She's getting lactated Ringer's at 20 mL an hour. From my perspective, the patient could be discharged home. Likely, and low saturations result of the medications given from anesthesia. Clinically, she's feeling well, likely be discharged home. She does have a history of hyperlipidemia, and hypothyroidism, in addition to asthma. No new labs today. Review of Systems REVIEW OF SYSTEMS: CONSTITUTIONAL: [Negative.] NEUROLOGIC: [ Negative.] HEENT: [ Negative.] CARDIAC: [Negative.] PULMONARY: Asymptomatic low saturations, following L4 kyphoplasty. GI: [Negative.] : [Negative.] RHEUMATOLOGIC: [ Negative.] IMMUNOLOGIC: [ Negative.] ENDOCRINE: [Negative. ] DERMATOLOGIC: [Negative.] Past Medical History Past Medical History: Asthma, GERD/Reflux, Hyperlipidemia, Osteoarthritis (OA), Thyroid Disorder Additional Past Medical History / Comment(s): hypthoridism. [place] plate to upper lid rt eye. generalized arthritis , bilateral lower leg swelling. hx of fall History of Any Multi-Drug Resistant Organisms: None Reported Past Surgical History: Cholecystectomy, Tubal Ligation Additional Past Surgical History / Comment(s): eyelid surgery. colonoscopies, vein stripping to left leg Past Anesthesia/Blood Transfusion Reactions: Postoperative Nausea & Vomiting (PONV) Additional Past Anesthesia/Blood Transfusion Reaction / Comment(s): daughter n/v Smoking Status: Never smoker - Past Family History Mother Family Medical History: Deep Vein Thrombosis (DVT) Additional Family Medical History / Comment(s): blood clot to brain Father Family Medical History: Cancer Additional Family Medical History / Comment(s): esophageal Medications and Allergies Home Medications Medication Instructions Recorded Confirmed Type Fluticasone Propion/Salmeterol 1 puff INHALATION RT-BID 07/19/16 01/05/23 History [Advair 250-50 Diskus] Levothyroxine Sodium [Synthroid] 88 mcg PO DAILY 07/19/16 01/05/23 History Montelukast [Singulair] 10 mg PO DAILY 07/19/16 01/05/23 History Omeprazole 20 mg PO DAILY 07/19/16 01/05/23 History Atorvastatin [Lipitor] 40 mg PO SA 02/21/21 01/05/23 History Progesterone, Micronized 100 mg PO HS 02/21/21 01/05/23 History [Progesterone] Ascorbic Acid [Vitamin C] 500 mg PO DAILY 12/31/22 01/05/23 History Cholecalciferol [Vitamin D3 (125 125 mcg PO DAILY 12/31/22 01/05/23 History Mcg = 5000 Iu)] Escitalopram Oxalate [Lexapro] 10 mg PO DAILY 12/31/22 01/05/23 History Unk Coq10 1 tab PO DAILY 12/31/22 01/05/23 History Zinc Glycinate [Zinc Chelate] 30 mg PO DAILY 12/31/22 01/05/23 History traMADol HCl [Ultram] 50 mg PO Q6HR PRN 3 Days #12 tab 01/05/23 Rx Allergies Allergy/AdvReac Type Severity Reaction Status Date / Time No Known Allergies Allergy Verified 01/05/23 10:44 Physical Exam Osteopathic Statement: *. No significant issues noted on an osteopathic str uctural exam other than those noted in the History and Physical/Consult. Vitals: Vital Signs Temp Pulse Resp BP Pulse Ox 01/06/23 08:35 96 01/06/23 07:14 97.6 F 60 16 113/71 97 01/06/23 06:02 95 01/06/23 06:00 88 L 01/06/23 01:41 97.8 F 61 17 118/70 98 01/05/23 19:49 98 F 66 18 116/56 97 01/05/23 16:05 68 18 106/64 95 01/05/23 15:30 63 18 100/56 100 01/05/23 15:00 63 16 118/60 98 01/05/23 14:45 70 16 110/71 98 01/05/23 14:30 83 16 119/70 98 01/05/23 14:15 85 16 146/89 100 01/05/23 14:00 84 16 122/83 95 01/05/23 13:45 67 16 119/57 95 01/05/23 13:30 79 16 126/57 94 L 01/05/23 13:15 76 16 145/65 93 L 01/05/23 13:00 77 14 151/63 94 L 01/05/23 12:46 82 16 146/70 98 01/05/23 12:31 97 16 160/71 96 Intake and Output 01/05/23 01/06/23 01/06/23 22:59 06:59 14:59 Other: # Voids 1 No acute distress, oriented 3. Currently on room air. No conversational dyspnea, or use of accessory muscles. No audible wheezing. HEENT examination is grossly unremarkable. Neck supple. Full range of motion. No adenopathy thyromegaly or neck vein distention. Cardiovascular examination reveals regular rhythm rate. S1-S2 normal. No S3 or S4. Soft systolic murmur noted. Heart rate 60 bpm. Lungs reveal clear breath sounds. Breath sounds are equal bilaterally. No adventitious lung sounds including wheezes rhonchi or crackles. Abdomen soft bowel sounds are heard. No masses or tenderness. Extremities are intact. No cyanosis clubbing or edema. Skin is without rash or lesion. Neurologic examination is brief but nonfocal. Assessment and Plan Assessment: Transient hypoxemia, following L4 kyphoplasty, likely related to anesthesia. History of chronic bronchial asthma. History of hypothyroidism. History of dyslipidemia. History of gastroesophageal reflux disease. Plan: Plan dated 01/06/2023. The patient appears be doing relatively well. Room air saturations are 96%. From the pulmonary perspective, the patient could be discharged home. I told the patient's daughter,who is a PA at this hospital, that should her mother develop any issues, she can let me know, by phone or by text. Additional recommendations and suggestions are forthcoming. Time with Patient: Greater than 30
[2023-01-07] MEDS ORDERED: PANTOPRAZOLE 40 MG/10 ML VIAL IVP SCH (09:00)
[2023-01-08] MEDS ORDERED: ATORVASTATIN 40 MG TAB PO SCH (09:00)
== END 2023-01-06 12:16 | disposition home or self-care (01) ==
LOC: OR 10:14 → 4SSUR 15:56 → OR 01-06 12:16
PROVIDERS: ATTEND Orthopaedic Surgery Orthopaedic Surgery of the Spine
DX: S32.040A Wedge compression fracture of fourth lumbar vertebra, initial encounter for closed fracture (principal); E03.9 Hypothyroidism, unspecified; E78.5 Hyperlipidemia, unspecified; J45.909 Unspecified asthma, uncomplicated; K21.9 Gastro-esophageal reflux disease without esophagitis; M19.90 Unspecified osteoarthritis, unspecified site; Z79.51 Long term (current) use of inhaled steroids; Z79.890 Hormone replacement therapy; Z79.899 Other long term (current) drug therapy; Z90.49 Acquired absence of other specified parts of digestive tract; X58.XXXA Exposure to other specified factors, initial encounter
CPT/HCPCS: 94640 ×2; 94760; 97161; 86900; 86901; 86850; 72100; 22514; 20220; C1713; J0690 ×2; J2405; J1170; Q9966

== ENCOUNTER → 2023-10-26 | Outpatient (CLI) | payer MEDICARE ==
--- NOTE | 2023-10-27 08:21 | MM ---
Reason for Exam: Screening (asymptomatic). Last mammogram was performed 1 year(s) and 2 month(s) ago. Patient History: Menarche at age 16. First Full-Term at age 22. Postmenopausal. Currently using Progesterone, starting at age 75. 12/23/2008, Benign Cyst Aspiration on the left side. Risk Values: Alissa 5 year model risk: 1.4%. NCI Lifetime model risk: 2.5%. Prior Study Comparison: 01/23/2018 Bilateral Screening Mammogram, [facility]. 01/24/2019 Bilateral Screening Mammogram, [facility]. 05/15/2020 Bilateral Screening Mammogram, [facility]. 08/10/2021 Bilateral Screening Mammogram, [facility]. 08/11/2022 Bilateral MG 3D screening mammo w/cad, [facility]. Tissue Density: The breasts are heterogeneously dense, which may obscure small masses. Findings: Analyzed By CAD. There is no suspicious group of microcalcifications or new suspicious mass in either breast. Overall Assessment: Benign, BI-RAD 2 Management: Screening Mammogram of both breasts in 1 year. . Patient should continue monthly self-breast exams. A clinical breast exam by your physician is recommended on an annual basis. This exam should not preclude additional follow-up of suspicious palpable abnormalities. Note on Alissa scores and lifetime risk: 1. A Alissa score greater than 3% is considered moderate risk. If this is the case, consider specialist referral to assess eligibility for a risk reducing agent. 2. If overall lifetime risk for the development of breast cancer is 20% or higher, the patient may qualify for future screening with alternating mammogram and breast MRI. Electronically signed and approved by: Brandon Valles M.D. Radiologis
== END | disposition home or self-care (01) ==
LOC: RADMAMWWP 07:19
PROVIDERS: ATTEND Family Medicine
DX: Z12.31 Encounter for screening mammogram for malignant neoplasm of breast (principal); Z78.0 Asymptomatic menopausal state
CPT/HCPCS: 77063; 77067

== ENCOUNTER 2024-05-15 11:46 | Emergency (ER) | payer MEDICARE ==
[2024-05-15 12:00] VITALS: TEMP 98.1
--- NOTE | 2024-05-15 12:24 | ED ---
Abdominal Pain HPI - General Chief Complaint: Abdominal Pain Stated Complaint: constipation few weeks Time Seen by Provider: 05/15/24 12:03 Source: patient, RN notes reviewed Mode of arrival: ambulatory Limitations: no limitations - History of Present Illness Initial Comments: Patient is a 79 year old female who presents with constipation x 2-3 weeks. She states that she has been constipated for 2-3 weeks, but believes it could be longer. She states that her PCP ordered an X-ray of her abdomen and diagnosed her with "fecal impaction". She states that she tried to relieve the constipation at home, and has tried magnesium citrate, an enema, and sinacet, none of which have worked. She notes that when she does have a bowel movement it is "water with little brown specks". She endorses some nausea. She denies any abdominal pain, melena, hematochezia, vomiting, chest pain, back pain, or shortness of breath. Of note, she states she has an appointment for a CT scan 05/16/24, but wanted to seek treatment before then. - Related Data Home Medications Medication Instructions Recorded Confirmed Fluticasone Propion/Salmeterol 1 puff INHALATION RT-BID 07/19/16 05/15/24 [Advair 250-50 Diskus] Levothyroxine Sodium [Synthroid] 88 mcg PO DAILY 07/19/16 05/15/24 Montelukast [Singulair] 10 mg PO DAILY 07/19/16 05/15/24 Omeprazole 20 mg PO DAILY 07/19/16 05/15/24 Cholecalciferol [Vitamin D3 (125 125 mcg PO DAILY 12/31/22 05/15/24 Mcg = 5000 Iu)] Escitalopram Oxalate [Lexapro] 10 mg PO DAILY 12/31/22 05/15/24 Ubidecarenone [Co Q-10] 300 mg PO DAILY 05/15/24 05/15/24 Zinc Gluconate [Zinc] 50 mg PO DAILY 05/15/24 05/15/24 Allergies Allergy/AdvReac Type Severity Reaction Status Date / Time No Known Allergies Allergy Verified 05/15/24 11:57 Review of Systems ROS Statement: Those systems with pertinent positive or pertinent negative responses have been documented in the HPI. ROS Other: All systems not noted in ROS Statement are negative. 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 History of Any Multi-Drug Resistant Organisms: None Reported Past Surgical History: Cholecystectomy, Tubal Ligation Additional Past Surgical History / Comment(s): eyelid surgery. Past Anesthesia/Blood Transfusion Reactions: No Reported Reaction Past Psychological History: No Psychological Hx Reported Smoking Status: Never smoker Past Alcohol Use History: None Reported Past Drug Use History: None Reported - Past Family History Mother Family Medical History: Deep Vein Thrombosis (DVT) Father Family Medical History: Cancer General Exam Limitations: no limitations General appearance: alert, in no apparent distress Respiratory exam: Present: normal lung sounds bilaterally. Absent: respiratory distress, wheezes, rales, rhonchi, stridor Cardiovascular Exam: Present: regular rate, normal rhythm, normal heart sounds. Absent: systolic murmur, diastolic murmur, rubs, gallop, clicks GI/Abdominal exam: Present: soft, normal bowel sounds, hypoactive bowel sounds. Absent: distended, tenderness, guarding, rebound, rigid Neurological exam: Present: alert, oriented X3, CN II-XII intact Skin exam: Present: warm, dry, intact, normal color. Absent: rash Course Vital Signs 05/15/24 05/15/24 11:57 13:39 Temperature 98.1 F Pulse Rate 75 70 Respiratory 18 20 Rate Blood Pressure 140/73 133/84 O2 Sat by Pulse 99 97 Oximetry Medical Decision Making - Medical Decision Making Was pt. sent in by a medical professional or institution (, [facility], DEPUTY OF COUNTER INTELLIGENCE, urgent care, hospital, or halfway...) When possible be specific @ -PCP Did you speak to anyone other than the patient for history (EMS, parent, family, police, friend...)? What history was obtained from this source @ -No Did you review nursing and triage notes (agree or disagree)? Why? @ -I reviewed and agree with nursing and triage notes Were old charts reviewed (outside hosp., previous admission, EMS record, old EKG, old radiological studies, urgent care reports/EKG's, halfway records)? Report findings @ -No old charts were reviewed Differential Diagnosis (chest pain, altered mental status, abdominal pain women, abdominal pain men, vaginal bleeding, weakness, fever, dyspnea, syncope, headache, dizziness, GI bleed, back pain, seizure, CVA, palpatations, mental health, musculoskeletal)? @ -Differential Abdominal Pain Women: Appendicitis, Cholecystitis, diverticulosis, ischemic bowel, pancreatitis, hepatitis, UTI, gastroenteritis, AAA, incarcerated hernia, bowel obstruction, constipation, inflammatory bowel, hepatitis, peptic ulcer disease, splenic infarction, perforated viscus, vulvitis, ovarian torsion, PID, kidney stone, placenta abruption, this is not meant to be an all-inclusive list EKG interpreted by me (3pts min.). @ -None X-rays interpreted by me (1pt min.). @ -None done CT interpreted by me (1pt min.). @ -[CT abdomen pelvis show no evidence of obstruction or constipation no acute process. U/S interpreted by me (1pt. min.). @ -None done What testing was considered but not performed or refused? (CT, X-rays, U/S, labs)? Why? @ -None What meds were considered but not given or refused? Why? @ -None Did you discuss the management of the patient with other professionals (professionals i.e. , PA, DEPUTY OF COUNTER INTELLIGENCE, lab, RT, psych nurse, long term care social worker, hardware engineer, teacher, code enforcement officer, caser up)? Give summary @ -No Was smoking cessation discussed for >3mins.? @ -No Was critical care preformed (if so, how long)? @ -No Were there social determinants of health that impacted care today? How? (Homelessness, low income, unemployed, alcoholism, drug addiction, branch sportation, low edu. Level, literacy, decrease access to med. care, [place] [facility], rehab)? @ -No Was there de-escalation of care discussed even if they declined (Discuss DNR or withdrawal of care, Hospice)? DNR status @ -No What co-morbidities impacted this encounter? (DM, HTN, Smoking, COPD, CAD, Cancer, CVA, ARF, Chemo, Hep., AIDS, mental health diagnosis, sleep apnea, morbid obesity)? @ -None Was patient admitted / discharged? Hospital course, mention meds given and route, prescriptions, significant lab abnormalities, going to OR and other pertinent info. @ -[Discharge patient CT laboratory studies unremarkable patient will discontinue softeners, laxatives work follow-up with PCP return pressure d iscussed. Undiagnosed new problem with uncertain prognosis? @ -No Drug Therapy requiring intensive monitoring for toxicity (Heparin, Nitro, Insulin, Cardizem)? @ -No Were any procedures done? @ -No Diagnosis/symptom? @ -Abdominal pain Acute, or Chronic, or Acute on Chronic? @ -Acute Uncomplicated (without systemic symptoms) or Complicated (systemic symptoms)? @ -On complicated Side effects of treatment? @ -No Exacerbation, Progression, or Severe Exacerbation? @ -No Poses a threat to life or bodily function? How? (Chest pain, [place], PR, pneumonia, PE, COPD, DKA, ARF, appy, cholecystitis, CVA, Diverticulitis, Homicidal, Suicidal, threat to staff... and all critical care pts) @ -No - Lab Data Result diagrams: 05/15/24 12:28 05/15/24 12:28 Lab Results 05/15/24 05/15/24 05/15/24 Range/Units 12:28 12:28 12:28 WBC 8.4 (3.8-10.6) k/uL RBC 4.96 (3.80-5.40) m/uL Hgb 14.5 (11.4-16.0) gm/dL Hct 44.3 (34.0-46.0) % MCV 89.3 (80.0-100.0) fL MCH 29.3 (25.0-35.0) pg MCHC 32.8 (31.0-37.0) g/dL RDW 13.3 (11.5-15.5) % Plt Count 305 (150-450) k/uL MPV 8.3 Neutrophils % 54 % Lymphocytes % 31 % Monocytes % 9 % Eosinophils % 3 % Basophils % 1 % Neutrophils # 4.5 (1.3-7.7) k/uL Lymphocytes # 2.6 (1.0-4.8) k/uL Monocytes # 0.7 (0-1.0) k/uL Eosinophils # 0.3 (0-0.7) k/uL Basophils # 0.1 (0-0.2) k/uL Sodium 145 (137-145) mmol/L Potassium 4.7 (3.5-5.1) mmol/L Chloride 108 H (98-107) mmol/L Carbon Dioxide 27 (22-30) mmol/L Anion Gap 10 mmol/L BUN 14 (7-17) mg/dL Creatinine 0.75 (0.52-1.04) mg/dL Est GFR (CKD-EPI)AfAm 88 (>60 ml/min/1.73 sqM) Est GFR (CKD-EPI)NonAf 76 (>60 ml/min/1.73 sqM) Glucose 84 (74-99) mg/dL Calcium 10.4 H (8.4-10.2) mg/dL Total Bilirubin 1.0 (0.2-1.3) mg/dL AST 35 (14-36) U/L ALT 24 (4-34) U/L Alkaline Phosphatase 90 (38-126) U/L Total Protein 7.1 (6.3-8.2) g/dL Albumin 4.2 (3.5-5.0) g/dL Lipase 123 (23-300) U/L Urine Color Yellow Urine Appearance Clear (Clear) Urine pH 6.5 (5.0-8.0) Ur Specific [employer] 1.023 (1.001-1.035) Urine Protein Trace H (Negative) Urine Glucose (UA) Negative (Negative) Urine Ketones 2+ H (Negative) Urine Blood Trace H (Negative) Urine Nitrite Negative (Negative) Urine Bilirubin Negative (Negative) Urine Urobilinogen <2.0 (<2.0) mg/dL Ur Leukocyte Esterase Negative (Negative) Urine RBC 2 (0-5) /hpf Urine WBC 1 (0-5) /hpf Ur Squamous Epith Cells 2 (0-4) /hpf Urine Bacteria Rare H (None) /hpf Urine Mucus Moderate H (None) /hpf Disposition Clinical Impression: Abdominal discomfort Disposition: HOME SELF-CARE Condition: Stable Instructions (If sedation given, give patient instructions): Abdominal Pain (ED) Additional Instructions: Please return to the Emergency Department if symptoms worsen or any other concerns. Is patient prescribed a controlled substance at d/c from ED?: No Referrals: Ania Carroll DO [Primary Care Provider] - 1-2 days Time of Disposition: 13:33
[2024-05-15] MEDS: SODIUM CHLORIDE 0.9% 500 ML 500 ML IV ONE (12:27)
[2024-05-15 12:57] LABS: Basophils # (A) 0.1 k/uL (0-0.2); Basophils % (A) 1 %; Eosinophils # (A) 0.3 k/uL (0-0.7); Eosinophils % (A) 3 %; HCT 44.3 % (34.0-46.0); HGB 14.5 gm/dL (11.4-16.0); Lymphocytes # (A) 2.6 k/uL (1.0-4.8); Lymphocytes % (A) 31 %; MCH 29.3 pg (25.0-35.0); MCHC 32.8 g/dL (31.0-37.0); MCV 89.3 fL (80.0-100.0); Mean Platelet Volume 8.3; Monocytes # (A) 0.7 k/uL (0-1.0); Monocytes % (A) 9 %; Neutrophils # (A) 4.5 k/uL (1.3-7.7); Neutrophils % (A) 54 %; Platelet Count 305 k/uL (150-450); RBC 4.96 m/uL (3.80-5.40); RDW 13.3 % (11.5-15.5); WBC 8.4 k/uL (3.8-10.6)
[2024-05-15 13:06] LABS: Appearance,Urine Clear (Clear); Bacteria,Urine Rare /hpf; Bilirubin,Urine Negative (Negative); Blood,Urine Trace (Negative); Color,Urine Yellow; Glucose,Urine (UA) Negative (Negative); Ketones,Urine 2+ (Negative); Leukocyte Esterase,Urine Negative (Negative); Mucus,Urine Moderate /hpf; Nitrite,Urine Negative (Negative); PH, Urine 6.5 (5.0-8.0); Protein,Urine Trace (Negative); RBC,Urine 2 /hpf (0-5); Specific Gravity,Urine 1.023 (1.001-1.035); Squamous Epithelial Cell,Urine 2 /hpf (0-4); Urobilinogen,Urine <2.0 mg/dL (<2.0); WBC,Urine 1 /hpf (0-5)
[2024-05-15 13:09] LABS: ALT 24 U/L (4-34); AST 35 U/L (14-36); African American GFR (CKD) 88 (>60 ml/min/1.73 sqM); Albumin 4.2 g/dL (3.5-5.0); Alkaline Phosphatase 90 U/L (38-126); Anion Gap 10 mmol/L; Blood Urea Nitrogen 14 mg/dL (7-17); Calcium 10.4 mg/dL (8.4-10.2); Carbon Dioxide 27 mmol/L (22-30); Chloride 108 mmol/L (98-107); Glucose 84 mg/dL (74-99); Lipase 123 U/L (23-300); Non-African American GFR(CKD) 76 (>60 ml/min/1.73 sqM); Potassium 4.7 mmol/L (3.5-5.1); Sodium 145 mmol/L (137-145); Total Protein 7.1 g/dL (6.3-8.2)
--- NOTE | 2024-05-15 13:22 | CT ---
EXAMINATION TYPE: CT abdomen pelvis wo con DATE OF EXAM: 05/15/2024 COMPARISON: 02/21/2021 CLINICAL INDICATION: Female, 79 years old with history of abdominal pain; PHH, constipation TECHNIQUE: CT scan of the abdomen and pelvis is performed without oral or IV contrast. CT DLP: 378.[address] CTDI: mGy Automated exposure control for dose reduction was used. FINDINGS: Within the limitations of a non-contrast study, the following observations are made. There are mild chronic interstitial changes in the lung bases. There is surgical absence of the gallbladder. There is no biliary ductal dilatation. There is no organomegaly involving the liver, pancreas, spleen or adrenal glands. There is a nonobstructing 5 mm right renal calcification. There are no left renal calcifications. The bowel loops are normal in caliber and there is no dilatation or obstruction. There is stable mild hazy density in the mesentery unchanged compared to the prior study. It is of doubtful significance given its stability. There is moderate diverticulosis of the sigmoid colon without CT evidence of diverticulitis. There is no pelvic mass, free fluid, abscess or adenopathy. There are stable calcifications within th e uterus. The osseous structures are intact. IMPRESSION: 1. Nonobstructing 5 mm right renal calcification. 2. Stable calcifications in the uterus. 3. Stable hazy density within the mesentery as described above. 4. No acute changes within the abdomen or pelvis. No significant abnormality seen. [facility], , 05/15/2024 1:20 PM
[2024-05-15 13:41] VITALS: BP 133/84; PULSE 70; RESP 20
== END 2024-05-15 13:41 | disposition home or self-care (01) ==
LOC: EC 11:46
DX: N28.89 Other specified disorders of kidney and ureter (principal); K59.00 Constipation, unspecified
CPT/HCPCS: 36415; 74176; 80053; 81001; 83690; 85025; 96360; 99284

== ENCOUNTER → 2024-11-16 | Outpatient (CLI) | payer MEDICARE ==
--- NOTE | 2024-11-16 08:26 | MM ---
Reason for Exam: Screening (asymptomatic). Last mammogram was performed 1 year(s) and 1 month(s) ago. Patient History: Menarche at age 16. First Full-Term at age 22. Postmenopausal. Currently using Progesterone, starting at age 75. 12/23/2008, Benign Cyst Aspiration on the left side. Risk Values: Alissa 5 year model risk: 1.4%. NCI Lifetime model risk: 2.3%. Prior Study Comparison: 08/10/2021 Bilateral Screening Mammogram, [facility]. 08/11/2022 Bilateral MG 3D screening mammo w/cad, [facility]. 10/26/2023 Bilateral MG 3D screening mammo w/cad, [facility]. Tissue Density: The breasts are extremely dense, which lowers the sensitivity of mammography. Findings: Analyzed By CAD. There is no suspicious group of microcalcifications or new suspicious mass in either breast. Stable benign-appearing calcifications. Overall Assessment: Benign, BI-RAD 2 Management: Screening Mammogram of both breasts in 1 year. . Patient should continue monthly self-breast exams. A clinical breast exam by your physician is recommended on an annual basis. This exam should not preclude additional follow-up of suspicious palpable abnormalities. Note on Alissa scores and lifetime risk: 1. A Alissa score greater than 3% is considered moderate risk. If this is the case, consider specialist referral to assess eligibility for a risk reducing agent. 2. If overall lifetime risk for the development of breast cancer is 20% or higher, the patient may qualify for future screening with alternating mammogram and breast MRI. [facility], , 11/16/2024 8:23 AM. Electronically signed and approved by: Richard Man M.D. Radi[facility]
== END | disposition home or self-care (01) ==
LOC: RADMAMWWP 06:57
PROVIDERS: ATTEND Family Medicine
DX: Z12.31 Encounter for screening mammogram for malignant neoplasm of breast (principal); R92.343 Mammographic extreme density, bilateral breasts; Z78.0 Asymptomatic menopausal state
CPT/HCPCS: 77063; 77067